=== PATIENT | female | born 1945 | race African-American/Black ===

== ENCOUNTER 2021-06-17 12:15 | Inpatient (IN) | payer MEDICARE, MEDICAID ==
[~2021-06-17] VITALS: Ht 157.5 cm; Wt 29.1 kg
[2021-06-17] MEDS ORDERED: TETANUS, DIPHTHERIA, PERTUSSIS VAC/PF 0.5ML (>7YR OLD) IM ONE (13:00)
[2021-06-17 14:30] LABS: CLARITY URINE CLEAR (CLEAR); COLOR URINE YELLOW (YELLOW); KETONES URINE NEGATIVE (NEGATIVE); LEUKOCYTE ESTERASE URINE NEGATIVE (NEGATIVE); NITRITE URINE NEGATIVE (NEGATIVE); OCCULT BLOOD URINE NEGATIVE (NEGATIVE); PROTEIN URINE NEGATIVE (NEGATIVE); SPECIFIC GRAVITY URINE 1.011 (1.005-1.030); UROBILINOGEN URINE 0.2 E.U./dL (0.2-1.0)
[2021-06-17 14:37] LABS: BASOPHILS % 0.4 % (0.0-2.0); EOSINOPHILS % 0.1 % (0.0-5.0); HEMATOCRIT. 45.8 % (36.0-48.0); HEMOGLOBIN. 15.5 g/dL (12.0-16.0); LYMPHOCYTES % 24.2 % (20.0-50.0); MEAN CORPUSCULAR HEMOGLOBIN 30.3 pg (28.0-32.0); MEAN CORPUSCULAR VOLUME 89.7 fL (81.0-99.0); NEUTROPHILS % 65.3 % (40.0-76.0); PLATELET 164 x1000/uL (130-400); RED CELL DISTRIBUTION WIDTH 19.5 % (11.6-14.6)
[2021-06-17 16:49] LABS: CHLORIDE 100 mEq/L (98-107)
[2021-06-17 16:52] LABS: INR 1.2; PROTHROMBIN TIME 13.1 sec (9.6-11.0)
[2021-06-17 16:57] LABS: CREATINE KINASE 241 IU/L (26-192)
[2021-06-17] MEDS ORDERED: POTASSIUM CHLORIDE 20MEQ TABLET SR PO NR (17:30)
[2021-06-17] MEDS ORDERED: ASPIRIN 325MG EC TABLET PO ONE (17:45)
[2021-06-17] MEDS ORDERED: POTASSIUM CHLORIDE INJ 40 MEQ in DEXT 5% WATER 250 ML IV NR (18:30)
[2021-06-17 21:40] VITALS: BP 84/50
[2021-06-17] MEDS ORDERED: ATOR20TA MT (23:00)
[2021-06-17] MEDS ORDERED: MACI10TA2 MT (23:00)
[2021-06-17] MEDS ORDERED: LEVO100T MT (23:00)
[2021-06-17] MEDS ORDERED: [UNRECOGNIZED DRUG - CODE] PO (23:00)
[2021-06-17] MEDS ORDERED: ASPI-1497 MT (23:00)
[2021-06-17] MEDS ORDERED: HYDR200T35 MT (23:04)
[2021-06-17 23:40] VITALS: BP 81/53
[2021-06-17] MEDS ORDERED: ONDANSETRON HCL 4MG/2ML INJ IV PRN (23:45)
[2021-06-17] MEDS ORDERED: NALOXONE HCL 0.4MG/ML VIAL IV PRN (23:45)
[2021-06-17] MEDS ORDERED: ACETAMINOPHEN 650MG/20.3ML UDC PO PRN (23:45)
[2021-06-18] VITALS (7 sets, daily range): BP systolic 81–107; BP diastolic 45–72
[2021-06-18] MEDS ORDERED: SODIUM CHLORIDE 0.9% 500 ML IV ONE (00:30)
[2021-06-18] MEDS ORDERED: SODIUM CHLORIDE 0.9% 1,000 ML IV ONE (00:30)
[2021-06-18] MEDS: LEVOTHYROXINE SODIUM 100MCG TABLET PO SCH (06:36)
[2021-06-18] MEDS: HYDROXYCHLOROQUINE SULFATE 200MG TABLET PO SCH ×2 (09:15→20:54)
[2021-06-18] MEDS: ASPIRIN 81MG TABLET PO SCH (09:15)
[2021-06-18 09:39] LABS: HEMATOCRIT. 41.5 % (36.0-48.0); HEMOGLOBIN. 13.6 g/dL (12.0-16.0); MEAN CORPUSCULAR HEMOGLOBIN 29.9 pg (28.0-32.0); MEAN CORPUSCULAR VOLUME 91.4 fL (81.0-99.0); MEAN PLATELET VOLUME 8.7 fl (7.4-10.4); PLATELET 142 x1000/uL (130-400); RED BLOOD CELL COUNT 4.54 mill/uL (4.2-5.4); RED CELL DISTRIBUTION WIDTH 19.7 % (11.6-14.6)
[2021-06-18] MEDS: HYDROCODONE/ACETAMINOPHEN 10/325MG TABLET PO PRN ×2 (09:42→16:06)
[2021-06-18] MEDS ORDERED: POTASSIUM CHLORIDE 20MEQ TABLET SR PO NR (11:45)
[2021-06-18] MEDS ORDERED: SODIUM CHLORIDE 0.45% 2,000 ML IV SCH (14:30)
[2021-06-18] MEDS: SODIUM CHLORIDE 0.45% 1,000 ML IV SCH (16:16)
[2021-06-18] MEDS: ENOXAPARIN 30MG/0.3ML SYR SUBCUT SCH (17:59)
[2021-06-18] MEDS: ATORVASTATIN CALCIUM 20MG TABLET PO SCH (20:54)
[2021-06-19] VITALS: BP 109/68
[2021-06-19 04:00] VITALS: BP 85/55
[2021-06-19] MEDS: LEVOTHYROXINE SODIUM 100MCG TABLET PO SCH (06:49)
[2021-06-19] MEDS: SODIUM CHLORIDE 0.45% 1,000 ML IV SCH (06:51)
[2021-06-19 07:50] LABS: HEMATOCRIT. 44.2 % (36.0-48.0); MEAN CORPUSCULAR HEMOGLOBIN 29.3 pg (28.0-32.0); MEAN CORPUSCULAR VOLUME 92.2 fL (81.0-99.0); MEAN PLATELET VOLUME 8.7 fl (7.4-10.4); PLATELET 132 x1000/uL (130-400); RED CELL DISTRIBUTION WIDTH 19.6 % (11.6-14.6)
[2021-06-19 08:00] VITALS: BP 111/60
[2021-06-19] MEDS: ASPIRIN 81MG TABLET PO SCH (09:39)
[2021-06-19] MEDS: HYDROXYCHLOROQUINE SULFATE 200MG TABLET PO SCH ×2 (09:39→21:07)
[2021-06-19] MEDS: ADCIRCA 20 MG PO SCH (09:40)
[2021-06-19] MEDS: OPSUMIT 10 MG PO SCH (09:40)
[2021-06-19] MEDS ORDERED: POTASSIUM CHLORIDE 20MEQ/PACKET PO NR (10:00)
[2021-06-19 11:30] LABS: NUCLEATED RED BLOOD CELLS 1 /100 WBC; PLATELET ESTIMATE NORMAL
[2021-06-19 12:00] VITALS: BP 107/65
[2021-06-19 16:00] VITALS: BP 103/65
[2021-06-19] MEDS: ENOXAPARIN 30MG/0.3ML SYR SUBCUT SCH (17:05)
[2021-06-19 20:00] VITALS: BP_SYST 76; BP_SYST 88; BP_SYST 99; BP_DIAS 53; BP_DIAS 55; BP_DIAS 66
[2021-06-19 20:30] LABS: PLATELET ESTIMATE NORMAL
[2021-06-19] MEDS: HYDROCODONE/ACETAMINOPHEN 5/325MG TABLET PO PRN (21:06)
[2021-06-19] MEDS: ATORVASTATIN CALCIUM 20MG TABLET PO SCH (21:07)
[2021-06-20] VITALS: BP 91/66
[2021-06-20 04:00] VITALS: BP 108/76
[2021-06-20 05:59] LABS: HEMATOCRIT. 45.1 % (36.0-48.0); HEMOGLOBIN. 14.5 g/dL (12.0-16.0); MEAN CORPUSCULAR HEMOGLOBIN 29.6 pg (28.0-32.0); MEAN CORPUSCULAR VOLUME 92.2 fL (81.0-99.0); PLATELET 144 x1000/uL (130-400); RED BLOOD CELL COUNT 4.89 mill/uL (4.2-5.4); RED CELL DISTRIBUTION WIDTH 19.8 % (11.6-14.6)
[2021-06-20 08:00] VITALS: BP 114/63
[2021-06-20] MEDS: OPSUMIT 10 MG PO SCH (08:48)
[2021-06-20] MEDS: ADCIRCA 20 MG PO SCH (08:48)
[2021-06-20] MEDS: HYDROCODONE/ACETAMINOPHEN 5/325MG TABLET PO PRN ×3 (08:50→20:30)
[2021-06-20] MEDS: LEVOTHYROXINE SODIUM 100MCG TABLET PO SCH (08:50)
[2021-06-20] MEDS: ASPIRIN 81MG TABLET PO SCH (08:50)
[2021-06-20] MEDS: HYDROXYCHLOROQUINE SULFATE 200MG TABLET PO SCH ×2 (08:50→20:29)
[2021-06-20 12:00] VITALS: BP_SYST 101; BP_SYST 108; BP_SYST 89; BP_DIAS 58; BP_DIAS 60; BP_DIAS 65
[2021-06-20 16:00] VITALS: BP 100/59
[2021-06-20] MEDS: ENOXAPARIN 30MG/0.3ML SYR SUBCUT SCH (17:41)
[2021-06-20 18:01] LABS: PLATELET ESTIMATE NORMAL
[2021-06-20 20:00] VITALS: BP 103/71
[2021-06-20] MEDS: ATORVASTATIN CALCIUM 20MG TABLET PO SCH (20:30)
[2021-06-21] VITALS: BP_SYST 101; BP_SYST 107; BP_SYST 97; BP_DIAS 56; BP_DIAS 61; BP_DIAS 64
[2021-06-21 04:00] VITALS: BP 113/57
[2021-06-21] MEDS: HYDROCODONE/ACETAMINOPHEN 5/325MG TABLET PO PRN ×3 (04:55→19:10)
[2021-06-21 06:28] LABS: CHLORIDE 107 mEq/L (98-107)
[2021-06-21] MEDS: LEVOTHYROXINE SODIUM 100MCG TABLET PO SCH (06:51)
[2021-06-21 07:12] LABS: HEMATOCRIT. 46.2 % (36.0-48.0); HEMOGLOBIN. 14.8 g/dL (12.0-16.0); MEAN CORPUSCULAR HEMOGLOBIN 29.8 pg (28.0-32.0); MEAN CORPUSCULAR VOLUME 92.8 fL (81.0-99.0); MEAN PLATELET VOLUME 9.2 fl (7.4-10.4); PLATELET 153 x1000/uL (130-400); RED BLOOD CELL COUNT 4.98 mill/uL (4.2-5.4); RED CELL DISTRIBUTION WIDTH 19.7 % (11.6-14.6)
[2021-06-21 08:19] VITALS: BP 100/64
[2021-06-21] MEDS: ASPIRIN 81MG TABLET PO SCH (08:25)
[2021-06-21] MEDS: HYDROXYCHLOROQUINE SULFATE 200MG TABLET PO SCH ×2 (08:25→21:37)
[2021-06-21] MEDS: OPSUMIT 10 MG PO SCH (08:26)
[2021-06-21] MEDS: ADCIRCA 20 MG PO SCH (08:26)
[2021-06-21 12:30] VITALS: BP 109/70
[2021-06-21 16:42] VITALS: BP 98/58
[2021-06-21 16:43] LABS: PLATELET ESTIMATE NORMAL
[2021-06-21 16:47] VITALS: BP 98/58
[2021-06-21] MEDS: ENOXAPARIN 30MG/0.3ML SYR SUBCUT SCH (17:47)
[2021-06-21] MEDS: ATORVASTATIN CALCIUM 20MG TABLET PO SCH (21:37)
[2021-06-22] VITALS: BP 118/66
[2021-06-22] MEDS: HYDROCODONE/ACETAMINOPHEN 5/325MG TABLET PO PRN ×4 (00:13→20:59)
[2021-06-22 03:52] VITALS: BP 96/56
[2021-06-22] MEDS: LEVOTHYROXINE SODIUM 100MCG TABLET PO SCH (06:14)
[2021-06-22 08:00] VITALS: BP 102/52
[2021-06-22] MEDS: AMLODIPINE 2.5MG TABLET PO SCH (09:00)
[2021-06-22] MEDS: HYDROXYCHLOROQUINE SULFATE 200MG TABLET PO SCH ×2 (09:43→20:57)
[2021-06-22] MEDS: ASPIRIN 81MG TABLET PO SCH (09:43)
[2021-06-22] MEDS: OPSUMIT 10 MG PO SCH (09:44)
[2021-06-22] MEDS: ADCIRCA 20 MG PO SCH (09:44)
[2021-06-22 12:00] VITALS: BP 108/71
[2021-06-22 16:00] VITALS: BP 128/76
[2021-06-22] MEDS: ENOXAPARIN 30MG/0.3ML SYR SUBCUT SCH (16:55)
[2021-06-22 20:00] VITALS: BP 94/57
[2021-06-22] MEDS: ATORVASTATIN CALCIUM 20MG TABLET PO SCH (20:57)
[2021-06-23] MEDS: HYDROCODONE/ACETAMINOPHEN 5/325MG TABLET PO PRN ×4 (01:22→20:17)
[2021-06-23 01:23] VITALS: BP 98/52
[2021-06-23 04:00] VITALS: BP_SYST 108; BP_SYST 114; BP_DIAS 63; BP_DIAS 65
[2021-06-23] MEDS: LEVOTHYROXINE SODIUM 100MCG TABLET PO SCH (06:31)
[2021-06-23 06:48] LABS: HEMATOCRIT. 43.1 % (36.0-48.0); HEMOGLOBIN. 13.8 g/dL (12.0-16.0); MEAN CORPUSCULAR HEMOGLOBIN 29.6 pg (28.0-32.0); MEAN CORPUSCULAR VOLUME 92.2 fL (81.0-99.0); MEAN PLATELET VOLUME 9.1 fl (7.4-10.4); PLATELET 143 x1000/uL (130-400); RED BLOOD CELL COUNT 4.68 mill/uL (4.2-5.4); RED CELL DISTRIBUTION WIDTH 19.7 % (11.6-14.6)
[2021-06-23 06:59] LABS: CHLORIDE 106 mEq/L (98-107)
[2021-06-23 08:00] VITALS: BP 122/71
[2021-06-23] MEDS ORDERED: DEXTROSE 50% WATER 50ML SYRINGE IV NR (08:15)
[2021-06-23] MEDS: OPSUMIT 10 MG PO SCH (08:42)
[2021-06-23] MEDS: ASPIRIN 81MG TABLET PO SCH (08:42)
[2021-06-23] MEDS: ADCIRCA 20 MG PO SCH (08:42)
[2021-06-23] MEDS: HYDROXYCHLOROQUINE SULFATE 200MG TABLET PO SCH ×2 (08:50→20:16)
[2021-06-23] MEDS: AMLODIPINE 2.5MG TABLET PO SCH (09:00)
[2021-06-23 12:00] VITALS: BP 102/61
[2021-06-23 16:00] VITALS: BP 97/57
[2021-06-23] MEDS: ENOXAPARIN 30MG/0.3ML SYR SUBCUT SCH (16:30)
[2021-06-23 18:13] LABS: PLATELET ESTIMATE NORMAL
[2021-06-23 20:00] VITALS: BP 95/56
[2021-06-23] MEDS: ATORVASTATIN CALCIUM 20MG TABLET PO SCH (20:17)
[2021-06-23] MEDS: IPRATROPIUM/ALBUTEROL 0.5-3(2.5)MG/3ML NEB HHN PRN (20:47)
[2021-06-24] VITALS: BP 109/64
[2021-06-24] MEDS: HYDROCODONE/ACETAMINOPHEN 5/325MG TABLET PO PRN ×2 (01:53→08:48)
[2021-06-24] MEDS: IPRATROPIUM/ALBUTEROL 0.5-3(2.5)MG/3ML NEB HHN PRN (02:11)
[2021-06-24 04:00] VITALS: BP 93/50
[2021-06-24] MEDS: LEVOTHYROXINE SODIUM 100MCG TABLET PO SCH (06:39)
[2021-06-24] MEDS: OPSUMIT 10 MG PO SCH (08:47)
[2021-06-24] MEDS: HYDROXYCHLOROQUINE SULFATE 200MG TABLET PO SCH (08:47)
[2021-06-24] MEDS: ADCIRCA 20 MG PO SCH (08:47)
[2021-06-24] MEDS: ASPIRIN 81MG TABLET PO SCH (08:47)
[2021-06-24 09:24] VITALS: BP 110/56
[2021-06-24] MEDS ORDERED: FUROSEMIDE 20MG TABLET PO SCH (11:45)
[2021-06-24 12:03] VITALS: BP 93/55
[2021-06-24] MEDS ORDERED: HYDROCODONE/ACETAMINOPHEN 5/325MG TABLET PO PRN (12:30)
[2021-06-24 13:57] VITALS: BP 121/70
[2021-06-25] MEDS ORDERED: AMLODIPINE 2.5MG TABLET PO SCH (09:00)
== END 2021-06-24 16:24 | disposition home health service (06) | DRG 73 ==
LOC: ER 12:47 → ENRESERV 20:49 → 6WST 23:24
PROVIDERS: ADMIT Internal Medicine; ATTEND Internal Medicine
DX: G90.8 Other disorders of autonomic nervous system (principal); I50.23 Acute on chronic systolic (congestive) heart failure; N17.0 Acute kidney failure with tubular necrosis; I11.0 Hypertensive heart disease with heart failure; E87.6 Hypokalemia; S01.81XA Laceration without foreign body of other part of head, initial encounter; I27.21 Secondary pulmonary arterial hypertension; E78.5 Hyperlipidemia, unspecified; E89.0 Postprocedural hypothyroidism; J44.9 Chronic obstructive pulmonary disease, unspecified; E86.0 Dehydration; I07.9 Rheumatic tricuspid valve disease, unspecified; E16.2 Hypoglycemia, unspecified; W18.39XA Other fall on same level, initial encounter; Z87.891 Personal history of nicotine dependence; Z99.81 Dependence on supplemental oxygen; Y93.89 Activity, other specified; Y92.89 Other specified places as the place of occurrence of the external cause; Y99.8 Other external cause status
CPT/HCPCS: 36415; 70486; 71045; 80048; 80053; 80061; 81003; 82040; 82550; 82962; 83880; 84134; 84484; 85025; 90715; 93005; 93306; 93880; 95816; 97162; 99285; J1650; J3480; J7040; J7060